=== PATIENT | male | born 1990 | race Two or more races ===

== ENCOUNTER 2025-03-16 12:12 | Emergency (ER) | payer OTHER ==
[~2025-03-16] VITALS: Ht 160 cm; Wt 71.7 kg
[2025-03-16] MEDS ORDERED: KETOROLAC TROMETHAMINE 30 MG VIAL IM ONE (13:45)
[2025-03-16] MEDS ORDERED: ORPHENADRINE CITRATE 30 MG/ML AMPUL IM ONE (13:45)
[2025-03-16] MEDS ORDERED: DEXAMETHASONE SODIUM PHOSPHATE 4 MG/ML VIAL IM ONE (13:45)
[2025-03-16 14:27] LABS: URINE APPEARANCE Clear; URINE BILIRRUBIN Negative (NEGATIVE); URINE BLOOD Trace; URINE COLOR Yellow; URINE GLUCOSE Negative (NEGATIVE); URINE KETONE Trace (NEGATIVE); URINE LEUKOCYTE Negative; URINE NITRATE Negative; URINE PROTEIN Negative (NEGATIVE); URINE UROBILINOGEN 0.2 E.U./dl
[2025-03-16 14:30] LABS: URINE EPITHELIAL CELLS 2.1 uL (0.0-38.8); URINE RBC 34.9 uL (0.0-20.8); URINE WBC 2.3 uL (0.0-23.2)
[2025-03-16 15:03] LABS: URINE BACTERIA 3.5 uL (0.0-1933); URINE CAST 0.14 uL (0.0-1.40)
[2025-03-16] MEDS ORDERED: DICLOFENAC SODI50 MG PO (17:34)
[2025-03-16] MEDS ORDERED: NORFLEX100MG PO (17:34)
== END 2025-03-16 19:10 ==
LOC: ER 12:12
PROVIDERS: General Practice
DX: M54.50 Low back pain, unspecified (principal)